=== PATIENT | female | born 2000 | race Caucasian/White ===

== ENCOUNTER 2019-03-05 10:19 | Emergency (ER) | payer BC ==
--- NOTE | 2019-03-05 10:57 | UC ---
Skin Complaint HPI - HPI Summary HPI Summary: 18-year-old female presents with complaints of mildly tender area of redness that has increased over the past 24 hours. States it started with a small, red , raised lesion that she thought may have been an infected hair follicle. States she tried to drain it herself with a needle. This morning woke up with increased redness in the area. Denies fever, chills, or drainage. - History of Current Complaint Chief Complaint: UCSkin Time Seen by Provider: 03/05/19 10:47 Stated Complaint: RASH Hx Obtained From: Patient Hx Last Menstrual Period: 02/15/19 Pain Intensity: 3 - Allergy/Home Medications Allergies/Adverse Reactions: Allergies Allergy/AdvReac Type Severity Reaction Status Date / Time No Known Allergies Allergy Verified 03/05/19 10:40 Home Medications: Home Medications Venlafaxine ER (NF) [Effexor ER (NF)] 200 mg PO DAILY 03/05/19 [History Confirmed 03/05/19] PMH/Surg Hx/FS Hx/Imm Hx Previously Healthy: Yes Psychological History: Depression - Surgical History Surgical History: Yes Surgery Procedure, Year, and Place: tonsils - Family History Known Family History: Positive: Non-Contributory - Social History Occupation: Student Lives: With Family Alcohol Use: None Substance Use Type: None Smoking Status (MU): Never Smoked Tobacco Review of Systems All Other Systems Reviewed And Are Negative: Yes Constitutional: Negative: Fever, Chills Skin: Positive: Other - See HPI Respiratory: Positive: Negative Cardiovascular: Positive: Negative Gastrointestinal: Positive: Negative Genitourinary: Positive: Negative Musculoskeletal: Positive: Negative Neurological: Positive: Negative Is Patient Immunocompromised?: No Physical Exam - Summary Physical Exam Summary: GENERAL APPEARANCE: Well developed, well nourished, alert and cooperative, and appears to be in no acute distress. CARDIAC: Normal S1 and S2. No S3, S4 or murmurs. Rhythm is regular. There is no peripheral edema, cyanosis or pallor. Extremities are warm and well perfused. Capillary refill is less than 2 seconds. Peripheral pulses intact. LUNGS: Clear to auscultation without rales, rhonchi, wheezing or diminished breath sounds. ABDOMEN: Positive bowel sounds. Soft, nondistended, nontender. No guarding or rebound. No masses or hepatosplenomegally. MUSKULOSKELETAL: ROM intact to all extremities. No joint erythema or tenderness. Normal muscular development. Normal gait. SKIN: Skin normal color, texture and turgor. Small raised macular lesion < 1 cm in diameter without induration or fluctuance to the right medial, proximal upper arm with erythema of the surrounding tissue approximately 5.5 cm in diameter. No drainage noted. Triage Information Reviewed: Yes Vital Signs: Initial Vital Signs Temp 98 F 03/05/19 10:36 Pulse 101 03/05/19 10:36 Resp 17 03/05/19 10:36 BP 124/85 03/05/19 10:36 Pulse Ox 100 03/05/19 10:36 Vital Signs Reviewed: Yes Course/Dx - Course Course Of Treatment: 18-year-old female presents with complaints of mildly tender area of redness that has increased over the past 24 hours. States it started with a small, red , raised lesion that she thought may have been an infected hair follicle. States she tried to drain it herself with a needle. This morning woke up with increased redness in the area. Denies fever, chills, or drainage. Afebrile. Vital signs stable. Patient had small raised macular lesion < 1 cm in diameter without induration or fluctuance to the right medial, proximal upper arm with erythema of the surrounding tissue approximately 5.5 cm in diameter. No drainage noted. Remainder of exam was unremarkable. We will treat the patient for a cellulitis of the right upper arm with doxycycline 100 mg twice a day 7 days. She is to follow-up with her primary care provider in 3-5 days if symptoms persist. Anticipatory guidance and warning symptoms were reviewed with the patient. Verbalizes understanding and agrees with plan of care. - Differential Diagnoses - Skin Complaint Differential Diagnoses: Abscess, Cellulitis, Contact Dermatitis, Local Allergic Reaction, MRSA - Diagnoses Provider Diagnosis: Cellulitis of right upper arm Discharge - Sign-Out/Discharge Documenting (check all that apply): Patient Departure All imaging exams completed and their final reports reviewed: No Studies - Discharge Plan Condition: Stable Disposition: HOME Prescriptions: Doxycycline Hyclate 100 mg PO BID #14 tablet Patient Education Materials: Cellulitis (ED) Referrals: No Primary Care Phys,NOPCP [Primary Care Provider] - Additional Instructions: The area of redness on your right upper arm appears to be an infection of the skin called cellulitis. We will start to on an antibiotic to treat for infection. Take doxycycline 100 mg 1 tablet twice a day for 7 days. Do not drink milk, eat milk products, or take any supplements containing calcium for at least 2 hours before or after taking the doxycycline as calcium can't effectively absorption of this antibiotic. Doxycycline will also make him more sensitive to the sunlight therefore is advised that you avoid sun exposure while taking this antibiotic. If you must be outdoors you need to take precautions including sunscreen, long sleeves, and a hat. Follow-up with your primary care provider in 3-5 days if symptoms are not improving. Seek immediate medical attention in the emergency room if you have fever greater than 100.5 F, the redness continues to spread rapidly, if swelling of the arm, severe pain, red streaking up the arm, or any worsening of symptoms. - Billing Disposition and Condition Condition: STABLE Disposition: Home
== END 2019-03-05 11:11 | disposition home or self-care (01) ==
LOC: UCEAST 10:19
DX: L03.113 Cellulitis of right upper limb (principal); F32.9 Major depressive disorder, single episode, unspecified
CPT/HCPCS: 99202; G0463